=== PATIENT | male | born 1990 | race Two or more races ===

== ENCOUNTER 2019-07-06 14:02 | Emergency (ER) | payer OTHER ==
[~2019-07-06] VITALS: Ht 182.9 cm; Wt 105.0 kg
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
--- NOTE | 2019-07-06 14:22 | NUR ---
REPORT GIVEN TO JAVAD FAY
[2019-07-06 16:11] VITALS: BP 155/85
[2019-07-06] MEDS ORDERED: DIVALPROEX 500 MG TABLET.DR ONE (17:06)
[2019-07-06] MEDS ORDERED: ACETAMINOPHEN 500 MG TABLET ONE (17:21)
[2019-07-06] MEDS ORDERED: ACETAMINOPHEN 500 MG TABLET PO ONE (18:00)
== END 2019-07-06 18:11 | disposition home or self-care (01) ==
LOC: ED 15:22
DX: S00.83XA Contusion of other part of head, initial encounter (principal); X58.XXXA Exposure to other specified factors, initial encounter; Y93.89 Activity, other specified; Y92.89 Other specified places as the place of occurrence of the external cause; Y99.8 Other external cause status
CPT/HCPCS: 70486; 99284